=== PATIENT | male | born 1935 | race Asian ===

== ENCOUNTER 2017-10-07 15:33 | Inpatient (IN) | payer OTHER, MEDICAID ==
[~2017-10-07] VITALS: Ht 160 cm; Wt 58.5 kg
[~2017-10-07 15:33] MED LIST: ATOR20TA PO; COZ50 PO
[2017-10-07 15:59] VITALS: BP 108/70
[2017-10-07] MEDS ORDERED: DILTIAZEM 25 MG/5 ML VIAL IVP ONE ×2 (16:15→19:10)
[2017-10-07 17:07] LABS: APPEARANCE,URINE CLEAR (CLEAR); BILIRUBIN,URINE NEGATIVE (NEGATIVE); BLOOD, URINE NEGATIVE (NEGATIVE); COLOR,URINE YELLOW (YELLOW); LEUKOCYTE ESTERASE ,URINE NEGATIVE (NEGATIVE); NITRITE, URINE NEGATIVE (NEGATIVE); UGLUCOSE NEGATIVE (NEGATIVE)
[2017-10-07 17:08] LABS: BASOPHILS # (AUTO) 0.2 K/uL (0.00-0.22); HEMATOCRIT 44.8 % (36-52); HEMOGLOBIN 14.6 g/dL (12.0-18.0); LYMPHOCYTES # (AUTO) 0.6 K/uL (2.0-11.5); MEAN CORPUSCULAR HEMOGLOBIN 30 pg (27-31); MEAN CORPUSCULAR HGB CONC 33 g/dL (33-37); MEAN CORPUSCULAR VOLUME 93.2 fL (80-94); MONOCYTES # (AUTO) 0.2 K/uL (0.8-1.0); NEUTROPHILS # (AUTO) 5.8 K/uL (1.8-7.7); PLATELET COUNT (AUTO) 94 K/uL (140-450); RED CELL DISTRIBUTION WIDTH 11.9 % (11.6-13.7); WHITE BLOOD COUNT (AUTO) 6.9 K/uL (4.8-10.8)
[2017-10-07 17:18] LABS: ALBUMIN 3.8 g/dL (3.4-5.0); ASPARTATE AMINOTRANSFERASE 24 U/L (15-37); TOTAL BILIRUBIN 0.4 mg/dL (0.0-1.0)
[2017-10-07 17:19] LABS: ANION GAP 13.5 (8-16); CARBON DIOXIDE 29.3 mmol/L (21-32); CHLORIDE 105 mmol/L (98-107); CREATININE 1.2 mg/dL (0.7-1.3); GLUCOSE 183 mg/dL (74-106); POTASSIUM 3.8 mmol/L (3.5-5.1); SODIUM SERUM 144 mmol/L (136-145); UREA NITROGEN, BLOOD 21 mg/dL (7-18)
[2017-10-07 17:19] LABS: BARBITURATE, URINE NEG. ng/ml (NEG <=200); BENZODIAZEPINE, URINE NEG. ng/mL (NEG <=200); CANNABINOID, URINE NEG. ng/mL (NEG <=50); COCAINE, URINE NEG. ng/mL (NEG <=300); OPIATE, URINE NEG. ng/mL (NEG <=2000); PHENCYCLIDINE SCREEN,URINE NEG. ng/mL (NEG <=25)
[2017-10-07] MEDS ORDERED: NACL 0.9% 1,000 ML IV ONE (18:10)
[2017-10-07] MEDS ORDERED: ASPIRIN 325 MG TAB PO ONE (18:10)
[2017-10-07] MEDS ORDERED: MORPHINE SULFATE 4 MG/ML SYR IVP ONE (18:10)
[2017-10-07] MEDS: TAMSULOSIN 0.4 MG CAP PO SCH (18:28)
[2017-10-07] MEDS ORDERED: ASPIRIN 325 MG TAB ONE (18:30)
[2017-10-07] MEDS ORDERED: TAMSULOSIN 0.4 MG CAP PO ONE (18:40)
[2017-10-07] MEDS ORDERED: LIDOCAINE/PRILOCAINE 2.5% 30 GM TUBE TP ONE (19:21)
[2017-10-07] MEDS ORDERED: diphenhydrAMINE 50 MG/ML VIAL IVP ONE (20:10)
[2017-10-07 21:00] VITALS: BP 153/78
[2017-10-07] MEDS ORDERED: MORPHINE SULFATE 2 MG/ML SYR IVP PRN ×2 (21:35)
[2017-10-07] MEDS ORDERED: HYDROcodone/APAP 5/325 MG 1 TAB TAB PO PRN (21:35)
[2017-10-07] MEDS ORDERED: ZOLPIDEM 5 MG TAB PO PRN (21:35)
[2017-10-07] MEDS ORDERED: ONDANSETRON 4 MG/2 ML VIAL IVP PRN (21:35)
[2017-10-07] MEDS ORDERED: ALUMINUM HYD/MAG/SIMETHICONE 30 ML UDC PO PRN (21:35)
[2017-10-07] MEDS ORDERED: LORazepam 2 MG/ML VIAL IVP PRN (21:35)
[2017-10-07] MEDS ORDERED: NITROGLYCERIN 0.4 MG TAB SL PRN (21:35)
[2017-10-07] MEDS ORDERED: ACETAMINOPHEN 325 MG TAB PO PRN (21:35)
[2017-10-07] MEDS ORDERED: LORazepam 1 MG TAB PO PRN (21:35)
[2017-10-08] VITALS: BP 129/68
[2017-10-08 01:27] LABS: CREATINE KINASE MB 3.2 ng/mL (0-3.6)
[2017-10-08] MEDS ORDERED: ENOXAPARIN 60 MG/0.6 ML SYR SUBQ SCH (02:10)
[2017-10-08 04:00] VITALS: BP 142/70
[2017-10-08 07:49] LABS: BASOPHILS # (AUTO) 0.1 K/uL (0.00-0.22); BASOPHILS % (AUTO) 1.6 % (0.0-2.0); EOSINOPHILS # (AUTO) 0.1 K/uL (0-0.4); EOSINOPHILS % (AUTO) 1.6 % (0.0-4.0); HEMATOCRIT 41.7 % (36-52); HEMOGLOBIN 13.8 g/dL (12.0-18.0); LYMPHOCYTES # (AUTO) 0.9 K/uL (2.0-11.5); LYMPHOCYTES % (AUTO) 13.3 % (20.5-51.1); MEAN CORPUSCULAR HEMOGLOBIN 30 pg (27-31); MEAN CORPUSCULAR HGB CONC 33 g/dL (33-37); MEAN CORPUSCULAR VOLUME 91.8 fL (80-94); MONOCYTES # (AUTO) 0.8 K/uL (0.8-1.0); MONOCYTES % (AUTO) 11.4 % (1.7-9.3); NEUTROPHILS # (AUTO) 4.8 K/uL (1.8-7.7); NEUTROPHILS % (AUTO) 72.1 % (42.2-75.2); PLATELET COUNT (AUTO) 136 K/uL (140-450); RED BLOOD CELL COUNT(AUTO) 4.55 MIL/uL (4.20-6.10); RED CELL DISTRIBUTION WIDTH 11.9 % (11.6-13.7); WHITE BLOOD COUNT (AUTO) 6.7 K/uL (4.8-10.8)
[2017-10-08 08:00] VITALS: BP 159/72
[2017-10-08 08:12] LABS: ANION GAP 11.8 (8-16); CARBON DIOXIDE 29.2 mmol/L (21-32); CHLORIDE 111 mmol/L (98-107); GLUCOSE 105 mg/dL (74-106); SODIUM SERUM 148 mmol/L (136-145); UREA NITROGEN, BLOOD 14 mg/dL (7-18)
[2017-10-08] MEDS: ATORVASTATIN 20 MG TAB PO SCH (09:23)
[2017-10-08] MEDS: LOSARTAN 50 MG TAB PO SCH (09:24)
[2017-10-08] MEDS: DOCUSATE SODIUM 100 MG GELCAP PO SCH (09:24)
[2017-10-08] MEDS: ENOXAPARIN 60 MG/0.6 ML SYR SUBQ SCH ×2 (09:26→20:48)
[2017-10-08 09:27] LABS: CREATINE KINASE MB 3.3 ng/mL (0-3.6)
[2017-10-08 12:00] VITALS: BP 169/83
[2017-10-08] MEDS ORDERED: METOPROLOL SUCCINATE 50 MG TABER PO SCH (12:00)
[2017-10-08 16:00] VITALS: BP 185/93
[2017-10-08] MEDS: cloNIDine 0.1 MG TAB PO PRN (18:06)
[2017-10-08 20:00] VITALS: BP 157/67
[2017-10-09] VITALS: BP 144/73
[2017-10-09 04:00] VITALS: BP 159/71
[2017-10-09 08:00] VITALS: BP 147/77
[2017-10-09 08:05] LABS: BASOPHILS # (AUTO) 0.2 K/uL (0.00-0.22); BASOPHILS % (AUTO) 3.2 % (0.0-2.0); EOSINOPHILS # (AUTO) 0.2 K/uL (0-0.4); HEMATOCRIT 47.3 % (36-52); HEMOGLOBIN 15.7 g/dL (12.0-18.0); LYMPHOCYTES # (AUTO) 1.2 K/uL (2.0-11.5); MEAN CORPUSCULAR HEMOGLOBIN 31 pg (27-31); MEAN CORPUSCULAR HGB CONC 33 g/dL (33-37); MEAN CORPUSCULAR VOLUME 92.6 fL (80-94); MONOCYTES # (AUTO) 0.5 K/uL (0.8-1.0); MONOCYTES % (AUTO) 10.9 % (1.7-9.3); NEUTROPHILS # (AUTO) 2.6 K/uL (1.8-7.7); NEUTROPHILS % (AUTO) 56.9 % (42.2-75.2); PLATELET COUNT (AUTO) 154 K/uL (140-450); WHITE BLOOD COUNT (AUTO) 4.7 K/uL (4.8-10.8)
[2017-10-09 08:11] LABS: ANION GAP 10.7 (8-16); CARBON DIOXIDE 33.6 mmol/L (21-32); CHLORIDE 105 mmol/L (98-107); GLUCOSE 99 mg/dL (74-106); POTASSIUM 4.3 mmol/L (3.5-5.1); SODIUM SERUM 145 mmol/L (136-145); UREA NITROGEN, BLOOD 14 mg/dL (7-18)
[2017-10-09 08:15] LABS: PROTHROMBIN TIME 10.4 secs (10.8-13.4)
[2017-10-09] MEDS: DOCUSATE SODIUM 100 MG GELCAP PO SCH (08:52)
[2017-10-09] MEDS: LOSARTAN 50 MG TAB PO SCH (08:52)
[2017-10-09] MEDS: TAMSULOSIN 0.4 MG CAP PO SCH (08:52)
[2017-10-09] MEDS: ENOXAPARIN 60 MG/0.6 ML SYR SUBQ SCH (09:00)
[2017-10-09] MEDS: METOPROLOL SUCCINATE 50 MG TABER PO SCH (09:00)
[2017-10-09] MEDS: ATORVASTATIN 20 MG TAB PO SCH (09:09)
[2017-10-09 12:00] VITALS: BP 175/77
[2017-10-09] MEDS: cloNIDine 0.1 MG TAB PO PRN (12:24)
[2017-10-09 16:00] VITALS: BP 131/68
[2017-10-09 20:00] VITALS: BP 156/65
[2017-10-10] VITALS: BP 154/54
[2017-10-10 04:00] VITALS: BP 151/76
[2017-10-10 05:53] LABS: BASOPHILS # (AUTO) 0.2 K/uL (0.00-0.22); BASOPHILS % (AUTO) 3.8 % (0.0-2.0); EOSINOPHILS # (AUTO) 0.2 K/uL (0-0.4); LYMPHOCYTES % (AUTO) 22.8 % (20.5-51.1); MEAN CORPUSCULAR HEMOGLOBIN 30 pg (27-31); MEAN CORPUSCULAR HGB CONC 33 g/dL (33-37); MEAN CORPUSCULAR VOLUME 91.4 fL (80-94); MONOCYTES # (AUTO) 0.5 K/uL (0.8-1.0); MONOCYTES % (AUTO) 11.7 % (1.7-9.3); NEUTROPHILS # (AUTO) 2.7 K/uL (1.8-7.7); NEUTROPHILS % (AUTO) 57.7 % (42.2-75.2); PLATELET COUNT (AUTO) 155 K/uL (140-450); RED BLOOD CELL COUNT(AUTO) 4.92 MIL/uL (4.20-6.10); RED CELL DISTRIBUTION WIDTH 12.1 % (11.6-13.7); WHITE BLOOD COUNT (AUTO) 4.6 K/uL (4.8-10.8)
[2017-10-10 07:42] LABS: ALBUMIN 3.5 g/dL (3.4-5.0); ANION GAP 11.8 (8-16); ASPARTATE AMINOTRANSFERASE 19 U/L (15-37); CARBON DIOXIDE 31.1 mmol/L (21-32); CHLORIDE 106 mmol/L (98-107); CREATININE 1.1 mg/dL (0.7-1.3); GLUCOSE 100 mg/dL (74-106); POTASSIUM 3.9 mmol/L (3.5-5.1); SODIUM SERUM 145 mmol/L (136-145); TOTAL BILIRUBIN 0.7 mg/dL (0.0-1.0); UREA NITROGEN, BLOOD 13 mg/dL (7-18)
[2017-10-10 08:00] VITALS: BP 162/70
[2017-10-10] MEDS: LOSARTAN 50 MG TAB PO SCH (08:43)
[2017-10-10] MEDS: TAMSULOSIN 0.4 MG CAP PO SCH (08:44)
[2017-10-10] MEDS: METOPROLOL SUCCINATE 50 MG TABER PO SCH (08:44)
[2017-10-10] MEDS: DOCUSATE SODIUM 100 MG GELCAP PO SCH (09:00)
[2017-10-10 10:05] VITALS: BP 162/70
[2017-10-10] MEDS: ATORVASTATIN 20 MG TAB PO SCH (10:50)
== END 2017-10-10 10:50 | disposition short-term general hospital (02) | DRG 281 ==
LOC: MED 15:33 → MTU 20:03
PROVIDERS: ADMIT Preventive Medicine Preventive Medicine/Occupational Environmental Medicine; ATTEND Preventive Medicine Preventive Medicine/Occupational Environmental Medicine
DX: I21.4 Non-ST elevation (NSTEMI) myocardial infarction (principal); I47.1 Supraventricular tachycardia; E87.0 Hyperosmolality and hypernatremia; E11.9 Type 2 diabetes mellitus without complications; E86.0 Dehydration; I11.9 Hypertensive heart disease without heart failure; E78.5 Hyperlipidemia, unspecified; I25.119 Atherosclerotic heart disease of native coronary artery with unspecified angina pectoris; R33.8 Other retention of urine; N40.1 Benign prostatic hyperplasia with lower urinary tract symptoms; R79.89 Other specified abnormal findings of blood chemistry; Z85.46 Personal history of malignant neoplasm of prostate
CPT/HCPCS: 36415; 71045; 80048; 80053; 80305; 81003; 82550; 82553; 83735; 84100; 84484; 85025; 85610; 85730; 87081; 93005; 96361; 96374; 96375; 99285; J1200; J1650; J2270; J3490; J7030; Q0092

== ENCOUNTER 2018-08-26 09:01 | Inpatient (IN) | payer MEDICARE, MEDICAID ==
[~2018-08-26] VITALS: Ht 160 cm; Wt 59.0 kg
--- NOTE | 2018-08-26 09:03 | NUR ---
PT TO BED 2 VIA WHEELCHAIR
--- NOTE | 2018-08-26 09:05 | NUR ---
BIB FAMILY WITH C/O CHEST PAIN SINCE 0500 THIS MORNING. PT STATES MID CHEST PAIN , NON RADIATING AT THIS TIME, FEELING GENARAL WEAKNESS AT THIS TIME. PMH: A-FIB, HTN , BPH RX: METROPOLOL DENIES N/V/D; SKIN IS PINK/WARM/DRY; AAOX4 . LUNGS CLEAR BL; HR EVEN AND REGULAR; PT DENIES ANY FEVER, CP, SOB, OR COUGH AT THIS TIME; PATIENT STATES PAIN OF 0/10 AT THIS TIME; VSS; PATIENT POSITIONED FOR COMFORT; HOB ELEVATED; BEDRAILS UP X2; BED DOWN. ER MD MADE AWARE OF PT STATUS.
[2018-08-26 09:07] VITALS: BP 144/77
[2018-08-26] MEDS ORDERED: NACL 0.9% 500 ML IV SCH (09:12)
--- NOTE | 2018-08-26 09:14 | NUR ---
Patient being evaluated by physician at bedside.
--- NOTE | 2018-08-26 09:17 | NUR ---
EKG AT BEDSIDE
[2018-08-26 09:38] LABS: BASOPHILS # (AUTO) 0.1 K/uL (0.00-0.22); EOSINOPHILS % (AUTO) 0.6 % (0.0-4.0); HEMATOCRIT 46.7 % (36-52); HEMOGLOBIN 15.5 g/dL (12.0-18.0); LYMPHOCYTES # (AUTO) 0.7 K/uL (2.0-11.5); LYMPHOCYTES % (AUTO) 13.5 % (20.5-51.1); MEAN CORPUSCULAR HEMOGLOBIN 30 pg (27-31); MEAN CORPUSCULAR HGB CONC 33 g/dL (33-37); MONOCYTES # (AUTO) 0.3 K/uL (0.8-1.0); MONOCYTES % (AUTO) 6.3 % (1.7-9.3); NEUTROPHILS # (AUTO) 3.9 K/uL (1.8-7.7); NEUTROPHILS % (AUTO) 78.6 % (42.2-75.2); PLATELET COUNT (AUTO) 172 K/uL (140-450); RED BLOOD CELL COUNT(AUTO) 5.08 MIL/uL (4.20-6.10); RED CELL DISTRIBUTION WIDTH 12.8 % (11.6-13.7)
--- NOTE | 2018-08-26 09:49 | NUR ---
NOTIFIED DR POWER P=161 AT THIS TIME.PT FEEL PALPITAION, DENIES CP AT THIS TIME.
[2018-08-26 09:50] LABS: PROTHROMBIN TIME 9.4 secs (10.8-13.4)
[2018-08-26 09:54] LABS: APPEARANCE,URINE CLEAR (CLEAR); BILIRUBIN,URINE NEGATIVE (NEGATIVE); BLOOD, URINE NEGATIVE (NEGATIVE); COLOR,URINE YELLOW (YELLOW); LEUKOCYTE ESTERASE ,URINE NEGATIVE (NEGATIVE); NITRITE, URINE NEGATIVE (NEGATIVE); UGLUCOSE NEGATIVE (NEGATIVE)
[2018-08-26 09:56] LABS: RBC,URINE NONE SEEN /HPF (0-5); WBC,URINE 0-5 (RARE) /HPF (0-5)
[2018-08-26] MEDS ORDERED: DILTIAZEM 25 MG/5 ML VIAL IVP ONE (10:00)
[2018-08-26 10:02] LABS: ANION GAP 13.2 (8-16); CARBON DIOXIDE 29.5 mmol/L (21-32); CHLORIDE 100 mmol/L (98-107); CREATININE 1.1 mg/dL (0.7-1.3); GLUCOSE 161 mg/dL (74-106); POTASSIUM 3.7 mmol/L (3.5-5.1); SODIUM SERUM 139 mmol/L (136-145); UREA NITROGEN, BLOOD 17 mg/dL (7-18)
[2018-08-26 10:07] LABS: ALBUMIN 4.3 g/dL (3.4-5.0); ASPARTATE AMINOTRANSFERASE 27 U/L (15-37); TOTAL BILIRUBIN 0.7 mg/dL (0.0-1.0)
--- NOTE | 2018-08-26 10:13 | NUR ---
Patient being reevaluated by physician at bedside. denies CP OR palpitaion AT THIS TIME.Patient appears to be resting comfortably in bed. Vital Signs within normal limits. Respirations even and unlabored.WILL CONTINUE TO MONITOR.
[2018-08-26] MEDS ORDERED: RIVAROXABAN 15 MG TAB PO ONE (10:25)
--- NOTE | 2018-08-26 12:25 | NUR ---
Patient will be admitted to care of DR CHILD. Admited to TELE. Will go to room 123B. Belongings list completed. Report to TONA MCCARTHY.
--- NOTE | 2018-08-26 12:27 | NUR ---
PT TAKEN TO TELE FLOOR BY SHARI MARQUEZ AND EMT GARRETT
[2018-08-26 12:30] VITALS: BP 128/59
--- NOTE | 2018-08-26 12:30 | NUR ---
RECEIVED BEDSIDE REPORT FROM ER NURSE. PT STABLE, AWAKE, AND ALERT. FAMILY AT THE BEDSIDE. NO SIGNS OF DISTRESS NOTED. DENIES PAIN. NO REDNESS, INFLAMMATION, OR SWELLING NOTED ON IV SITE. BED IN LOW POSITION, CALL LIGHT WITHIN REACH. SAFETY MEASURES IN PLACE. PLAN OF CARE REVIEWED.
[2018-08-26] MEDS ORDERED: LORazepam 2 MG/ML VIAL IVP PRN (14:10)
[2018-08-26] MEDS ORDERED: HYDROcodone/APAP 5/325 MG 1 TAB TAB PO PRN (14:10)
[2018-08-26] MEDS ORDERED: MORPHINE SULFATE 2 MG/ML SYR IVP PRN (14:10)
[2018-08-26] MEDS ORDERED: ACETAMINOPHEN 325 MG TAB PO PRN (14:10)
[2018-08-26] MEDS ORDERED: ONDANSETRON 4 MG/2 ML VIAL IVP PRN (14:10)
--- NOTE | 2018-08-26 14:45 | NUR ---
FAMILY AT THE BEDSIDE. SPOKE WITH PT'S DAUGHTER REGARDING PLAN OF CARE.
[2018-08-26 16:00] VITALS: BP 136/60
--- NOTE | 2018-08-26 16:30 | NUR ---
VITAL SIGNS TAKEN, PT IN STABLE CONDITION, ALERT AND ORIENTED X4.
--- NOTE | 2018-08-26 17:37 | NUR ---
DR Mark BENOIT AT THE BEDSIDE.
[2018-08-26] MEDS ORDERED: ATOR20TA PO (18:11)
[2018-08-26] MEDS ORDERED: AMLO10TA PO (18:11)
[2018-08-26] MEDS ORDERED: METO25TA PO (18:11)
[2018-08-26] MEDS ORDERED: RIVA20TA PO (18:11)
--- NOTE | 2018-08-26 19:29 | NUR ---
ENDORSED PT TO SHARI MORSE FOR CONTINUITY OF CARE. PT STABLE, AWAKE, AND ALERT. FAMILY AT THE BEDSIDE.
--- NOTE | 2018-08-26 19:30 | NUR ---
REPORT RECEIVED FROM AM NURSE AT BEDSIDE. PT IN STABLE CONDITION. AAOX4. INTRODUCE SELF TO PT AND FAMILY. BOARD UPDATED. NO COMPLAINTS OF CHEST PAIN. NO SOB. AFEBRILE. IV SITE L AC 20G RUNNING NS@10ML/HR TKO PATENT AND INTACT. SKIN WARM, DRY, AND INTACT WITH NO OPEN WOUNDS. PT IS VIP. BED LOCKED IN LOW POSITION. CALL COSBY WITHIN REACH. SAFETY PRECAUTIONS IN PLACE. ALL NEEDS MET AT THIS TIME.
[2018-08-26 20:00] VITALS: BP 141/45
--- NOTE | 2018-08-26 21:00 | NUR ---
PT NEEDED TO USE RESTROOM. D/C HIM FROM IV. WAITED FOR HIM TO COME BACK. RECONNECTED BACK TO IV. NO S/S OF DISTRESS. NO SOB. BREATHING WNL. WILL CONTINUE TO MONITOR.
--- NOTE | 2018-08-26 23:15 | NUR ---
PT LAYING IN BED WITH AT BEDSIDE ON RECLINER FROM OB. VS STABLE. BP 130/57. PT IN STABLE CONDITION. NO S/S OF DISTRESS NOTED. NO COMPLAINTS OF PAIN. AFEBRILE. WILL CONTINUE TO MONITOR.
[2018-08-27] VITALS: BP 130/57
--- NOTE | 2018-08-27 01:00 | NUR ---
PT ASLEEP BUT AROUSABLE WITH SPOUSE AT BEDSIDE. NO S/S OF DISTRESS NOTED.
--- NOTE | 2018-08-27 02:30 | NUR ---
PT SLEEPING COMFORTABLY BUT AROUSABLE. NO S/S OF DISTRESS NOTED. WILL CONTINUE TO MONITOR.
[2018-08-27 04:00] VITALS: BP 152/68
--- NOTE | 2018-08-27 05:00 | NUR ---
PT SLEEPING COMFORTABLY IN BED BUT AROUSABLE. NO S/S OF DISTRESS NOTED. BREATHING EVEN, UNLABORED, AND WNL. WILL CONTINUE TO MONITOR.
--- NOTE | 2018-08-27 07:05 | NUR ---
REPORT GIVEN TO AM NURSE AT BEDSIDE. PT IN STABLE CONDITION.
--- NOTE | 2018-08-27 07:10 | NUR ---
RECEIVED PT FROM IN FLIGHT TECHNICIAN NURSE, PT IS AWAKE AND LYING ON THE BED WITH ON THE BEDSIDE, SIDE RAILS UP AND CALL LIGHT WITHIN REACH, PT HAS AN IV LINE ON THE LEFT AC G. 20AT 5ML/HR, TKO, PT DENIES PAIN AND SOB. NO SIGN OF DISTRESS NOTED AND WILL CONTINUE TO MONITOR PT.
[2018-08-27 08:00] VITALS: BP 128/61
[2018-08-27] MEDS ORDERED: RIVAROXABAN 15 MG TAB PO SCH (08:00)
[2018-08-27 08:11] LABS: BASOPHILS # (AUTO) 0.1 K/uL (0.00-0.22); BASOPHILS % (AUTO) 1.4 % (0.0-2.0); EOSINOPHILS # (AUTO) 0.1 K/uL (0-0.4); EOSINOPHILS % (AUTO) 2.4 % (0.0-4.0); HEMATOCRIT 44.3 % (36-52); HEMOGLOBIN 14.8 g/dL (12.0-18.0); LYMPHOCYTES % (AUTO) 22.8 % (20.5-51.1); MEAN CORPUSCULAR HEMOGLOBIN 31 pg (27-31); MEAN CORPUSCULAR HGB CONC 34 g/dL (33-37); MEAN CORPUSCULAR VOLUME 92.3 fL (80-94); MONOCYTES # (AUTO) 0.5 K/uL (0.8-1.0); MONOCYTES % (AUTO) 10.2 % (1.7-9.3); NEUTROPHILS # (AUTO) 2.9 K/uL (1.8-7.7); NEUTROPHILS % (AUTO) 63.2 % (42.2-75.2); PLATELET COUNT (AUTO) 170 K/uL (140-450); RED CELL DISTRIBUTION WIDTH 12.8 % (11.6-13.7); WHITE BLOOD COUNT (AUTO) 4.5 K/uL (4.8-10.8)
[2018-08-27 08:16] LABS: MAGNESIUM 2.1 mg/dL (1.8-2.4); PHOSPHORUS 3.4 mg/dL (2.5-4.9)
[2018-08-27 08:18] LABS: ANION GAP 4.6 (8-16); CARBON DIOXIDE 31.2 mmol/L (21-32); CHLORIDE 110 mmol/L (98-107); GLUCOSE 108 mg/dL (74-106); POTASSIUM 3.8 mmol/L (3.5-5.1); SODIUM SERUM 142 mmol/L (136-145); UREA NITROGEN, BLOOD 11 mg/dL (7-18)
[2018-08-27] MEDS ORDERED: ATORVASTATIN 20 MG TAB PO SCH (09:00)
[2018-08-27] MEDS ORDERED: LOSARTAN 50 MG TAB PO SCH (09:00)
--- NOTE | 2018-08-27 09:45 | NUR ---
PT IS AWAKE AND VITAL SIGNS TAKEN PRIOR TO MEDICATION ADMINISTRATION, PT TOLERATED IT AND NO SIGN OF DISTRESS NOTED. WILL MONITOR PT.
[2018-08-27] MEDS ORDERED: CAR30 PO (11:12)
[2018-08-27] MEDS ORDERED: RIVA20TA PO (11:13)
--- NOTE | 2018-08-27 11:20 | NUR ---
DR. BUSTER BENOIT CAME TO THE PT'S ROOM AND SPOKE TO PT AND ON BEDSIDE.
[2018-08-27] MEDS ORDERED: RIVA15TA1 PO (11:24)
[2018-08-27] MEDS ORDERED: CARV6.25 PO (11:24)
[2018-08-27 12:00] VITALS: BP 127/56
--- NOTE | 2018-08-27 12:30 | NUR ---
PT IS AWAKE AND IS SEATED ON THE BED, ON THE BEDSIDE, VITAL SIGNS TAKEN AND IS WITHIN NORMAL LIMIT. NO SIGN OF DISTRESS NOTED. WILL MONITOR PT.
--- NOTE | 2018-08-27 13:00 | NUR ---
ECHO IS BEING DONE TO PT NOW.
--- NOTE | 2018-08-27 13:45 | NUR ---
ECHO IS FINISHED NOW.
--- NOTE | 2018-08-27 13:55 | NUR ---
DISCHARGE PT VIA WHEELCHAIR WITH AND DAUGHTER, DISCHARGE TEACHINGS AND INSTRUCTIONS GIVEN TO PT AND VERBALIZED UNDERSTANDING. IV LINE AND ARM BANDS REMOVED. PT IS STABLE AT THIS TIME.
== END 2018-08-27 13:55 | disposition home or self-care (01) | DRG 310 ==
LOC: MED 09:01 → MTU 11:47
PROVIDERS: ADMIT Preventive Medicine Preventive Medicine/Occupational Environmental Medicine; ATTEND Preventive Medicine Preventive Medicine/Occupational Environmental Medicine
DX: I48.1 Persistent atrial fibrillation (principal); E78.5 Hyperlipidemia, unspecified; I10 Essential (primary) hypertension; I25.10 Atherosclerotic heart disease of native coronary artery without angina pectoris; Z88.5 Allergy status to narcotic agent
CPT/HCPCS: 36415; 71045; 80048; 80053; 81001; 83605; 83735; 83880; 84100; 84484; 85025; 85610; 85730; 87040; 87081; 93005; 96361; 96374; 99285; G0378; J3490; J7030; Q0092

== ENCOUNTER 2021-02-21 11:48 | Emergency (ER) | payer OTHER ==
[~2021-02-21] VITALS: Ht 165.1 cm; Wt 59.0 kg
[~2021-02-21 11:48] MED LIST changes: +CARV6.25 PO; -COZ50 PO; +DILT30TA18 PO; +METO25TA PO; +RIVA15TA1 PO
--- NOTE | 2021-02-21 11:49 | NUR ---
Patient w/c assisted to bed 8.
--- NOTE | 2021-02-21 11:50 | NUR ---
85 YO MALE BIB FAMILY WITH C/O PALPITATIONS SINCE 8AM. REPORTS BP LAST NIGHT OF 152/67, SLEPT WELL THEN AWOKE WITH PALPATATIONS, FEELING DIZZY, AND INCREASED URINATION. REPORTS BP 172/130, HR 140WHILE AT DOCTOR VISIT. PT FAMILY STATES THAT HE HAS TAKEN ALL BLOOD PRESSURE MEDICATIONS THIS MORNING. PT FAMILY STATES PRIMARY CARE DOCTOR TOLD HER TO COME TO EMERGENCY ROOM. PT PLACED ON MONITOR WITH HR INITIALLY 145 AND THEN [place] INTO 80'S, BP 188/97 HR 86. ERMD MADE AWARE OF PT STATUS. PT DENIES CHEST PAIN, HEADACHE, LOC, FEVER, CHILLS, N/V/D. A&0X4, RR EVEN AND UNLABORED, DENIES PAIN. PMH - PACEMAKER, AFIB, HTN ALLERGIES - MORPHINE
[2021-02-21 11:52] VITALS: BP 188/97
[2021-02-21] MEDS ORDERED: NACL 0.9% 1,000 ML IV ONE (11:55)
--- NOTE | 2021-02-21 12:00 | NUR ---
BLOOD DRAW COLLECTED AND WALKED OVER TO LABS.
--- NOTE | 2021-02-21 12:07 | NUR ---
RAD AT BEDSIDE
[2021-02-21 12:27] LABS: BASOPHILS # (AUTO) 0.1 K/uL (0.00-0.22); BASOPHILS % (AUTO) 1.5 % (0.0-2.0); EOSINOPHILS # (AUTO) 0.1 K/uL (0-0.4); EOSINOPHILS % (AUTO) 2.4 % (0.0-4.0); HEMATOCRIT 44.7 % (36-52); HEMOGLOBIN 15.1 g/dL (12.0-18.0); LYMPHOCYTES # (AUTO) 0.9 K/uL (2.0-11.5); LYMPHOCYTES % (AUTO) 17.4 % (20.5-51.1); MEAN CORPUSCULAR HEMOGLOBIN 32 pg (27-31); MEAN CORPUSCULAR HGB CONC 34 g/dL (33-37); MEAN CORPUSCULAR VOLUME 94.4 fL (80-94); MONOCYTES # (AUTO) 0.4 K/uL (0.8-1.0); NEUTROPHILS # (AUTO) 3.5 K/uL (1.8-7.7); NEUTROPHILS % (AUTO) 70.7 % (42.2-75.2); PLATELET COUNT (AUTO) 162 K/uL (140-450); RED BLOOD CELL COUNT(AUTO) 4.74 MIL/uL (4.20-6.10); RED CELL DISTRIBUTION WIDTH 13.2 % (11.6-13.7)
[2021-02-21 12:39] LABS: ANION GAP 9.1 (8-16); ASPARTATE AMINOTRANSFERASE 65 U/L (15-37); CARBON DIOXIDE 31.9 mmol/L (21-32); CHLORIDE 105 mmol/L (98-107); CREATININE 1.3 mg/dL (0.6-1.3); GLUCOSE 178 mg/dL (74-106); SODIUM SERUM 142 mmol/L (136-145); TOTAL BILIRUBIN 0.5 mg/dL (0.0-1.0); UREA NITROGEN, BLOOD 23 mg/dL (7-18)
--- NOTE | 2021-02-21 12:41 | NUR ---
VALERIE LARES SAMPLE COLLECTED AND WALKED TO LAB
[2021-02-21 12:45] LABS: APPEARANCE,URINE CLEAR (CLEAR); BILIRUBIN,URINE NEGATIVE (NEGATIVE); BLOOD, URINE NEGATIVE (NEGATIVE); COLOR,URINE YELLOW (YELLOW); LEUKOCYTE ESTERASE ,URINE NEGATIVE (NEGATIVE); NITRITE, URINE NEGATIVE (NEGATIVE); UGLUCOSE NEGATIVE (NEGATIVE)
[2021-02-21] MEDS ORDERED: DIGOXIN 0.25 MG TAB PO ONE (12:55)
--- NOTE | 2021-02-21 13:27 | NUR ---
SAID, ON PHONE WITH FAMILY MEMBER.
[2021-02-21] MEDS ORDERED: DILT30TA18 PO (13:34)
[2021-02-21 13:46] VITALS: BP 134/55
--- NOTE | 2021-02-21 13:46 | NUR ---
Patient discharged with v/s stable. Written and verbal after care instructions given and explained. Patient alert, oriented and verbalized understanding of instructions. Ambulatory with steady gait. All questions addressed prior to discharge. ID band removed. Patient advised to follow up with PMD. Rx of DITIAZEM HYDROCHLORIDE given. Patient educated on indication of medication including possible reaction and side effects. Opportunity to ask questions provided and answered.
== END 2021-02-21 13:46 | disposition home or self-care (01) ==
LOC: MED 11:48
DX: I48.20 Chronic atrial fibrillation, unspecified (principal); Z20.822 Contact with and (suspected) exposure to COVID-19; R00.2 Palpitations; R42 Dizziness and giddiness; I10 Essential (primary) hypertension
CPT/HCPCS: 36415; 71045; 80053; 81003; 83605; 83735; 83880; 84484; 85025; 87040; 87426; 93005; 96360; 99285; J7030